=== PATIENT | female | born 1980 | race Two or more races ===

== ENCOUNTER → 2019-08-05 | Outpatient (CLI) | payer OTHER | END | disposition home or self-care (01) | LOC: PRENATAL 10:30 | DX: O26.851 Spotting complicating pregnancy, first trimester (principal); O09.521 Supervision of elderly multigravida, first trimester; O36.80X1 Pregnancy with inconclusive fetal viability, fetus 1 ==

== ENCOUNTER → 2019-09-23 | Outpatient (CLI) | payer OTHER | END | disposition home or self-care (01) | LOC: PRENATAL 10:00 | PROVIDERS: ATTEND Obstetrics & Gynecology | DX: O28.1 Abnormal biochemical finding on antenatal screening of mother (principal); O09.522 Supervision of elderly multigravida, second trimester; O35.3XX1 Maternal care for (suspected) damage to fetus from viral disease in mother, fetus 1 ==

== ENCOUNTER → 2019-11-30 | Outpatient (CLI) | payer OTHER | END | disposition home or self-care (01) | LOC: PRENATAL 11-25 10:00 | PROVIDERS: ATTEND Obstetrics & Gynecology Maternal & Fetal Medicine | DX: O26.843 Uterine size-date discrepancy, third trimester (principal); O09.523 Supervision of elderly multigravida, third trimester; O35.0XX1 Maternal care for (suspected) central nervous system malformation in fetus, fetus 1; Z36.89 Encounter for other specified antenatal screening; Z3A.30 30 weeks gestation of pregnancy ==

== ENCOUNTER 2020-01-18 14:00 | Inpatient (IN) | payer OTHER ==
[~2020-01-18] VITALS: Ht 157.5 cm; Wt 77.1 kg
[2020-02-09] MEDS ORDERED: PROTONIX40 MG PO (08:47)
[2020-02-09] MEDS ORDERED: IRON236 MG PO (08:47)
[2020-02-09] MEDS ORDERED: VALTREX1000 MG PO (08:47)
[2020-02-09] MEDS ORDERED: PRENATAL TABLE1 EAC1 PO (08:48)
[2020-02-11] MEDS ORDERED: IRON236 MG PO (11:55)
[2020-02-11] MEDS ORDERED: IBUPROFEN800 MG PO (11:55)
== END 2020-02-11 12:31 | disposition home or self-care (01) | DRG 807 ==
LOC: SURG-SUITE 02-09 07:27 → LDR 02-09 07:27 → OB/GYN 02-09 19:25 → SURG-SUITE 02-10 01:51 → LDR 02-12 14:00
PROVIDERS: ADMIT Obstetrics & Gynecology; ATTEND Obstetrics & Gynecology
PROC: 10E0XZZ Delivery of Products of Conception, External Approach (ICD-10-PCS; principal; 2020-02-09)
PROC: 4A1HXFZ Monitoring of Products of Conception, Cardiac Rhythm, External Approach (ICD-10-PCS; 2020-02-09)
PROC: 3E033VJ Introduction of Other Hormone into Peripheral Vein, Percutaneous Approach (ICD-10-PCS; 2020-02-09)
DX: O80 Encounter for full-term uncomplicated delivery (principal); Z37.0 Single live birth; Z3A.39 39 weeks gestation of pregnancy

== ENCOUNTER → 2022-01-24 | Emergency (ER) | payer OTHER ==
[~2022-01-24] VITALS: Ht 157.5 cm; Wt 68.9 kg
[~2022-01-24] MED LIST: IBUPROFEN800 MG PO; IRON236 MG PO; PRENATAL TABLE1 EAC1 PO; PROTONIX40 MG PO; VALTREX1000 MG PO
== END | disposition home or self-care (01) ==
LOC: ER 09:26
DX: N39.0 Urinary tract infection, site not specified (principal); Z88.0 Allergy status to penicillin

== ENCOUNTER 2022-06-12 09:51 | Outpatient (CLI) | payer OTHER | END 2022-06-12 10:00 | disposition home or self-care (01) | LOC: LAB 09:51 | PROVIDERS: ATTEND Internal Medicine Hematology & Oncology | DX: D50.8 Other iron deficiency anemias (principal); R79.9 Abnormal finding of blood chemistry, unspecified; I10 Essential (primary) hypertension; R74.02 Elevation of levels of lactic acid dehydrogenase [LDH]; K76.89 Other specified diseases of liver; D63.8 Anemia in other chronic diseases classified elsewhere; D51.1 Vitamin B12 deficiency anemia due to selective vitamin B12 malabsorption with proteinuria; D51.0 Vitamin B12 deficiency anemia due to intrinsic factor deficiency; D58.0 Hereditary spherocytosis; D51.8 Other vitamin B12 deficiency anemias; D68.8 Other specified coagulation defects; D51.3 Other dietary vitamin B12 deficiency anemia; D50.0 Iron deficiency anemia secondary to blood loss (chronic); G43.009 Migraine without aura, not intractable, without status migrainosus; D66 Hereditary factor VIII deficiency ==

== ENCOUNTER 2022-07-29 09:27 | Outpatient (CLI) | payer OTHER | END 2022-07-29 09:28 | disposition home or self-care (01) | LOC: LAB 09:27 | PROVIDERS: ATTEND Internal Medicine Hematology & Oncology | DX: D50.8 Other iron deficiency anemias (principal); R79.9 Abnormal finding of blood chemistry, unspecified; I10 Essential (primary) hypertension; R74.02 Elevation of levels of lactic acid dehydrogenase [LDH]; K76.89 Other specified diseases of liver; D51.1 Vitamin B12 deficiency anemia due to selective vitamin B12 malabsorption with proteinuria; D68.8 Other specified coagulation defects; D69.1 Qualitative platelet defects; D68.09 Other von Willebrand disease; D51.3 Other dietary vitamin B12 deficiency anemia; D50.0 Iron deficiency anemia secondary to blood loss (chronic); G43.009 Migraine without aura, not intractable, without status migrainosus ==

== ENCOUNTER 2022-07-30 09:47 | Outpatient (CLI) | payer OTHER | END 2022-07-30 09:56 | disposition home or self-care (01) | LOC: LAB 09:47 | PROVIDERS: ATTEND Internal Medicine Hematology & Oncology | DX: D51.3 Other dietary vitamin B12 deficiency anemia (principal); D50.0 Iron deficiency anemia secondary to blood loss (chronic); G43.009 Migraine without aura, not intractable, without status migrainosus; D68.8 Other specified coagulation defects; B96.81 Helicobacter pylori [H. pylori] as the cause of diseases classified elsewhere; D50.8 Other iron deficiency anemias; R79.9 Abnormal finding of blood chemistry, unspecified; I10 Essential (primary) hypertension; R74.02 Elevation of levels of lactic acid dehydrogenase [LDH]; K76.89 Other specified diseases of liver; C51.1 Malignant neoplasm of labium minus; D69.1 Qualitative platelet defects; D68.09 Other von Willebrand disease ==

== ENCOUNTER 2022-11-20 11:24 | Emergency (ER) | payer OTHER ==
[~2022-11-20] VITALS: Ht 157.5 cm; Wt 61.7 kg
[2022-11-20] MEDS ORDERED: ZOFRAN8 MG PO (16:45)
[2022-11-20] MEDS ORDERED: PEPCID AC20 MG PO (16:45)
== END 2022-11-20 16:58 | disposition home or self-care (01) ==
LOC: ER 11:24
DX: K52.9 Noninfective gastroenteritis and colitis, unspecified (principal); R11.10 Vomiting, unspecified; Z88.0 Allergy status to penicillin; Z20.822 Contact with and (suspected) exposure to COVID-19
CPT/HCPCS: 96365; 96366; 99284; J7030

== ENCOUNTER 2024-02-26 09:21 | Outpatient (CLI) | payer OTHER ==
[~2024-02-26 09:21] MED LIST changes: +PEPCID AC20 MG PO; +ZOFRAN8 MG PO
[2024-02-26 11:04] LABS: HEMATOCRIT 32.5 % (36.0-45.00); HEMOGLOBIN 11.2 g/dL (12.0-15.00); MEAN CELL VOLUME 90.9 fL (80.00-100.00); MEAN CORPUSCULAR HEMOGLOBIN 31.3 pg (27.00-32.0); MEAN CORPUSCULAR HGB CONC 34.5 g/dl (32.0-36.0); PLATELET COUNT 256 K/uL (150-450); RED BLOOD COUNT 3.58 M/uL (4.00-6.00); RED CELL DISTRIBUTION WIDTH 14.3 % (11.5-14.5)
[2024-02-26 11:14] LABS: INR 1.02; PARTIAL THROMBOPLASTIN TIME 27.9 SECONDS (22.0-34.0); PROTHROMBIN TIME 11.1 SECONDS (9.0-11.5)
[2024-02-26 11:54] LABS: % SATURACION 49.5 % (15-50); ALBUMIN 3.4 gm/dL (3.4-5.0); BILIRUBIN TOTAL 0.29 mg/dL (0.3-1.2); CALCIUM 8.7 mg/dL (8.5-10.1); CREATININE SERUM 0.57 mg/dL (0.55-1.02); FERRITIN 6.4 NG/ML (8-252); GFR 114.7; POTASSIUM 3.92 mEq/L (3.5-5.1); TOTAL PROTEIN 6.4 gm/dL (6.4-8.2)
[2024-02-26 12:24] LABS: MANUAL PLATELET COUNT 328
[2024-02-26 12:25] LABS: PLATELET ESTIMATE NORMAL (NORMAL)
[2024-02-26 12:29] LABS: FOLIC ACID > 20.00 ng/ml (4.78-20); VITAMIN D3 25 HYDROXY 21.08 ng/ml (30-120)
== END 2024-02-26 09:22 | disposition home or self-care (01) ==
LOC: LAB 09:21
PROVIDERS: ATTEND Internal Medicine Hematology & Oncology
DX: D51.3 Other dietary vitamin B12 deficiency anemia (principal); D69.1 Qualitative platelet defects; D50.0 Iron deficiency anemia secondary to blood loss (chronic); D68.8 Other specified coagulation defects; G43.009 Migraine without aura, not intractable, without status migrainosus; D50.8 Other iron deficiency anemias; R79.9 Abnormal finding of blood chemistry, unspecified; I10 Essential (primary) hypertension; R74.02 Elevation of levels of lactic acid dehydrogenase [LDH]; K76.89 Other specified diseases of liver; E55.9 Vitamin D deficiency, unspecified; E56.1 Deficiency of vitamin K

== ENCOUNTER 2024-11-12 09:23 | Outpatient (CLI) | payer OTHER ==
[2024-11-12 11:27] LABS: BASO % 1.2 % (0.1-1.2); EOS # 0.12 (0.04-0.54); EOS % 2.0 % (0.7-7.0); LYMPH # 2.72 (1.18-3.74); LYMPH % 45.9 % (19.3-53.1); MEAN PLATELET VOLUME 11.00 fl (9.4-12.4); MONO # 0.56 (0.24-0.82); MONO % 9.4 % (4.7-12.5); NEUT # 2.45 (1.56-6.13); NEUT % 41.3 % (34.0-71.1); RED CELL DISTRIBUTION WIDTH 15.9 % (11.6-14.4)
[2024-11-12 11:50] LABS: INR 1.01
[2024-11-12 11:57] LABS: COL EPI 174 SECONDS (82-175)
[2024-11-12 12:23] LABS: % SATURACION 7.3 % (15-50); ALT/SGPT 19.0 U/L (12-78); AST/SGOT 16.0 U/L (15-37); BILIRUBIN TOTAL 0.32 mg/dL (0.3-1.2); BUN CREA RATIO 20.0 (7.0-25.0); CREATININE SERUM 0.74 mg/dL (0.55-1.02); FE 32.0 ug/dl (50-170); GFR 84.87; GLOBULINA 3.3 G/DL (2.4-3.5); GLUCOSE FASTING 92.0 mg/dL (65-100); LDH 161.0 U/L (84-246); OSMOLALITY SERUM 278.0 MOSM/KG (275-295)
[2024-11-12 12:36] LABS: FOLIC ACID 15.58 ng/ml (4.78-20); VITAMIN D3 25 HYDROXY 27.14 ng/ml (30-120)
[2024-11-12 13:39] LABS: MANUAL PLATELET COUNT 302
[2024-11-15 15:12] LABS: FACTOR X ACTIVITY 111 % (76-183); FACTOR XI ACTIVITY 96 % (60-150); FACTOR XIII Normal (No Lysis/24)
[2024-11-15 17:08] LABS: FACTOR XII ACTIVITY 128 % (50-150)
== END 2024-11-12 09:47 | disposition home or self-care (01) ==
LOC: LAB 09:23
PROVIDERS: ATTEND Internal Medicine Hematology & Oncology
DX: D51.3 Other dietary vitamin B12 deficiency anemia (principal); D69.1 Qualitative platelet defects; D50.0 Iron deficiency anemia secondary to blood loss (chronic); G43.009 Migraine without aura, not intractable, without status migrainosus; D68.8 Other specified coagulation defects; D50.8 Other iron deficiency anemias; R79.9 Abnormal finding of blood chemistry, unspecified; I10 Essential (primary) hypertension; R74.02 Elevation of levels of lactic acid dehydrogenase [LDH]; K76.89 Other specified diseases of liver; E55.9 Vitamin D deficiency, unspecified; D68.1 Hereditary factor XI deficiency